=== PATIENT | male | born 1980 | race Caucasian/White ===

== ENCOUNTER 2016-06-23 18:35 | Emergency (ER) | payer SELFPAY ==
[~2016-06-23] VITALS: Ht 170.2 cm; Wt 95.2 kg
== END 2016-06-23 20:13 | disposition short-term general hospital (02) ==
LOC: ER 18:35
DX: S93.401A Sprain of unspecified ligament of right ankle, initial encounter (principal); S83.91XA Sprain of unspecified site of right knee, initial encounter; M25.461 Effusion, right knee; W01.0XXA Fall on same level from slipping, tripping and stumbling without subsequent striking against object, initial encounter
CPT/HCPCS: J1885